=== PATIENT | male | born 2000 | race Caucasian/White ===

== ENCOUNTER → 2021-03-12 13:51 | Outpatient (CLI) | payer OTHER, SELFPAY ==
--- NOTE | ~2021-03-12 | XR_ITS ---
XR shoulder LT min 2V DATE: 03/12/2021 14:11 INDICATION: Left shoulder pain after lifting weights TECHNIQUE: 4 views COMPARISON: None FINDINGS: No fracture or dislocation, periosteal reaction or bone destruction or abnormal soft tissue calcification. Normal alignment at the acromioclavicular and glenohumeral joints. No abnormal soft t issue calcification is detected. IMPRESSION: Negative Reviewed, dictated and finalized at location A. IMPRESSION: Negative
== END ==
PROVIDERS: PCP Nurse Practitioner Family; Visit Provider Nurse Practitioner Family
DX: M25.512 Pain in left shoulder (principal)
CPT/HCPCS: 73030

== ENCOUNTER 2021-04-16 10:45 | Emergency (ER) | payer OTHER, SELFPAY ==
[2021-04-16 10:45] VITALS: BP 140/78; PULSE 108; RESP 16; TEMP 37.1; O2SAT 97
--- NOTE | 2021-04-16 10:50 | ED.URI ---
HPI - URI/Sore Throat General Stated Complaint: sore throat/cold symptoms Time Seen by Provider: 04/16/21 10:55 Source: patient and RN notes reviewed Mode of arrival: ambulatory Limitations: no limitations History of Present Illness HPI Narrative: Walter is a 21-year-old male patient who [facility] with come of sore throat cough productive sputum of yellow and sinus congestion starting on last . Patient states he has been using DayQuil and night well and emergency relief [id number]. Patient states he had Covid 1 year ago. Patient states he has had received his first dose of Pfizer and is due for the second dose now. Patient states and Friday he had minimal symptoms got worse on Friday and Friday he had a negative rapid Covid test on Friday. Patient states he has had night sweats unsure if he has had a fever. Patient states his roommate also has similar symptoms and also was negative for Covid. MD elicited complaint: fever, cough, sore throat and nasal congestion Related Data Home Medications Medication Instructions Recorded Confirmed No Home Medications 04/16/21 04/16/21 Allergies Allergy/AdvReac Type Severity Reaction Status Date / Time No Known Allergies Allergy Verified 04/16/21 11:10 Review of Systems Review of Systems: CONSTITUTIONAL: Denies body aches, fever, chills, + sweats. EYES: Denies visual changes, redness, or discharge. ENT: + rhinorrhea,+ congestion, +sore throat, denies otalgia. CARDIOVASCULAR: Denies chest pain, palpitations, or edema. RESPIRATORY: Denies dyspnea; + productive cough with yellow sputum GASTROINTESTINAL: Denies abdominal pain, nausea, vomiting, or diarrhea. GENITOURINARY: Denies dysuria or hematuria. SKIN: Denies rash, itching, or wounds. MUSCULOSKELETAL: Denies back pain, joint pain, or myalgia. NEUROLOGIC: Denies numbness, tingling, or weakness; + headache PSYCH: Denies depression or anxiety. All systems reviewed & are unremarkable except as noted in HPI and below PMFSH Comments At time of signature, I have reviewed and agree with nursing past medical, surgical, social and family history unless otherwise noted. Please see nursing chart for further information. There is no relevant family history pertinent to the presenting complaint Exam Narrative: GENERAL: Well-appearing, well-nourished, and in no acute distress. HEAD: Normocephalic, atraumatic. EYES: EOMI. No redness or drainage. Conjunctivae normal. ENT: Mucous membranes pink and moist. Nares pale erythemic tissue, clear rhinorrhea. TMs dull, fluid filled,minimal bulging, Throat erythemic, 3+ tonsils, white exudate on right. Uvula midline. NECK: Normal AROM. Supple. Right anterior lymphadenopathy. CHEST: No respiratory distress. Clear to auscultation. MUSCULOSKELETAL: No bony tenderness. EXTREMITIES: Normal range of motion. No edema. SKIN: Warm, dry, no rash. Capillary refill normal. Normal skin turgor. NEURO: No focal deficits. Alert and oriented x3. Gait steady. PSYCH: Normal affect. No signs of depression or anxiety. Course Vital Signs Vital signs: Reviewed. Pt has been instructed to follow up with his PCP regarding his elevated blood pressure today. MDM - URI/Sore Throat MDM Narrative Medical decision making narrative: Rapid strep is negative, plus tonsils white exudate Differential Diagnosis Differential diagnosis: Likely upper respiratory infection, otitis media, sinusitis and pharyngitis Medical Records Attestation: I reviewed the patient's medical records. Lab Data Attestation: I reviewed the patient's lab results. Critical Care Time Critical Care Time Critical Care Time: No Discharge Plan Discharge Clinical Impression: Pharyngitis, Viral upper respiratory illness Patient Disposition: Home, Self-Care Condition: Stable Instructions: Antibiotic Form, Upper Respiratory Infection (ED) Additional Instructions: Your symptoms are li
== END 2021-04-16 11:24 | disposition home or self-care (01) ==
PROVIDERS: Emergency Provider Nurse Practitioner Family
DX: J02.9 Acute pharyngitis, unspecified (principal); J06.9 Acute upper respiratory infection, unspecified
CPT/HCPCS: 87081; 87880; 99213; G0463